=== PATIENT | female | born 1980 | race Caucasian/White ===

== ENCOUNTER 2016-10-02 13:56 | Emergency (ER) | payer OTHER ==
[~2016-10-02] VITALS: Ht 175.3 cm; Wt 68.0 kg
[2016-10-02] MEDS ORDERED: MULTLIQ7 PO (14:05)
[2016-10-02 14:45] LABS: BASO % 0.6 % (0.0-1.0); EOS # 0.2 K/mm3 (0.0-0.50); EOS % 2.7 % (0.0-3.0); LARGE UNSTAINED CELL # 0.2 K/mm3 (0.0-0.4); LARGE UNSTAINED CELL % 2.6 % (0.0-4.0); LYMPH % 31.8 % (24.0-44.0); MEAN CORPUSCULAR HEMOGLOBIN 32.3 pg (27.0-33.0); MEAN CORPUSCULAR HGB CONC 33.8 g/dl (32.0-36.5); MEAN CORPUSCULAR VOLUME 95.4 fl (80.0-96.0); MONO # 0.3 K/mm3 (0.0-0.8); MONO % 5.4 % (0.0-5.0); NEUTROPHILS # 3.5 K/mm3 (1.8-7.7); NEUTROPHILS % 56.9 % (36.0-66.0); PLATELET COUNT, AUTOMATED 184 k/mm3 (150-450); RED CELL DISTRIBUTION WIDTH 12.1 % (11.5-14.5); WHITE BLOOD COUNT 6.2 K/mm3 (4.0-10.0)
[2016-10-02 15:29] VITALS: BP 124/68
--- NOTE | 2016-10-02 16:04 | REP ---
FIRST TRIMESTER ULTRASOUND: Real-time sonographic evaluation of the pelvis performed utilized transabdominal and endovaginal technique. Uterus measures 8.8 x 6.4 x 7.0 cm. Small cystic area in the endometrial canal measures 5 mm in average diameter which could represent a gestational sac 5 weeks 2 days gestational age. No yolk sac or pole is seen. Adjacent complex fluid is seen in the endometrial canal measuring 2.8 x 1.3 x 3.6 cm. Right ovary measures 3.5 x 2.6 x 3.0 cm with a complex cystic structure of 1.7 x 0.9 x 1.3 cm. Left ovary measures 3.4 x 2.0 x 2.5 cm. There is no ovarian torsion or blood flow seen in each ovary with duplex Doppler evaluation. No other adnexal mass is seen. There is mild free fluid. IMPRESSION: Small cystic area in the endometrial canal with adjacent complex fluid/hemorrhage. Small cystic structure right ovary. Mild free fluid. Findings may represent very early intrauterine with large subchorionic hemorrhage. Ectopic is not completely excluded. Suggest correlation with serial quantitaive beta hCG values. Signed by Gil Tapia MD 10/02/2016 04:59 P
== END 2016-10-02 16:02 | disposition home or self-care (01) ==
LOC: M ED 14:54
DX: O20.0 Threatened abortion (principal); Z3A.00 Weeks of gestation of pregnancy not specified

== ENCOUNTER → 2016-10-08 | Outpatient (CLI) | payer OTHER ==
[~2016-10-08] MED LIST: MULTLIQ7 PO
--- NOTE | 2016-10-08 14:53 | REP ---
Clinical: Dating and viability. Comparison: 10/02/2016. Technique: Transabdominal and transvaginal first trimester obstetrical ultrasound with color Doppler evaluation. Findings: Anteverted uterus measures 10.3 x 6.2 x 8.4 cm and includes a gestational sac with yolk sac, but no identifiable pole. Mean sac diameter measuring 15.7 mm corresponds to 6 weeks 3 days gestational age. A moderate subchorionic hemorrhage is again identified measuring 28 x 20 x 36 mm similar to prior examination. Ovaries are stable again demonstrating 12 mm hemorrhagic cyst in the right ovary as well as small amount of free fluid in the pelvis. Impression: Mean sac diameter currently measuring at 6 weeks 3 days gestational age without pole. Differential diagnosis includes spontaneous and early , and less likely ectopic cannot be excluded. Correlation with serial HCG levels and repeat ultrasound as necessary. Signed by Mitchell Camacho MD 10/08/2016 02:44 P
== END ==
LOC: M RAD 13:49
PROVIDERS: ATTEND Obstetrics & Gynecology
DX: Z36 Encounter for antenatal screening of mother (principal); Z3A.01 Less than 8 weeks gestation of pregnancy

== ENCOUNTER 2017-05-15 04:04 | Inpatient (IN) | payer OTHER ==
[~2017-05-15] VITALS: Ht 175.3 cm; Wt 99.0 kg
[2017-05-15] VITALS (11 sets, daily range): BP systolic 114–143; BP diastolic 56–70
[2017-05-15] MEDS ORDERED: OXYTOCIN 30 UNITS IN 0.9% NaCl 500ML IV BAG (J2590) As Ordered ONE (04:07)
[2017-05-15] MEDS ORDERED: OXYTOCIN DRIP 30 UNITS in APPROPRIATE DILUENT 1 EA IV SCH (04:52)
[2017-05-15] MEDS ORDERED: LIDOCAINE 1% MDV INJ 50 ML VIAL INFIL ONE (05:00)
[2017-05-15] MEDS ORDERED: DIBUCAINE 1% OINTMENT 30GM TOP PRN (05:00)
[2017-05-15] MEDS ORDERED: ONDANSETRON 4MG/2ML VIAL (J2405) IV PRN (05:00)
[2017-05-15] MEDS ORDERED: MEASLES,MUMPS,RUBELLA VACCINE INJ (MMR-II) (90707) SC SCH (05:00)
[2017-05-15] MEDS ORDERED: miSOPROStol 200 MCG TAB (S0191) PR ONE (05:00)
[2017-05-15] MEDS ORDERED: RHOGAM 300 MCG (1500 IU) INJ (J2790) IM SCH (05:00)
--- NOTE | 2017-05-15 05:05 | DNPDOC ---
[facility] Delivery Note Delivery Note DATE OF DELIVERY: 257 at home, [id number] PREDELIVERY DIAGNOSIS: 36 4/7 weeks' gestation and labor. POST DELIVERY DIAGNOSIS: Delivered. 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 Amezcua ANESTHESIA: none ESTIMATED BLOOD LOSS: 300 mL. FINDINGS: 7 pound 3 ounce male , Score 8/9 per EMS DELIVERY SUMMARY: Paged a little after 0300, told by that baby had just delivered at home in the bathroom. EMS had just arrived. I got a quick history , estimated time from awaking with gush of fluid to delivery 30 min. Told EMS to clamp the cord only and get her to [facility]. On arrival, baby doing well and on the warmer. placenta still in place. Slight traction and fundal massage , intact with some old blood following, no trailing membranes. Fundus firm at U -1, pit going wide open. 2nd degr perineal lac repaired in standard fashion with 3-0 vicryl after 1% lidocaine bath. Good cosmesis/hemostasis. ELIS,GABBY Knowles MD May 15, 2017 05:05
--- NOTE | 2017-05-15 05:18 | HPEPDOC ---
Obstetrical History & Physical General Date of Admission May 15, 2017 at 04:04 History of Present Illness Paged a little after 0300, told by that baby had just delivered at home in the bathroom. EMS had just arrived. I got a quick history, estimated time from awaking with gush of fluid to delivery 30 min. Told EMS to clamp the cord only and get her to [facility]. Problem list: prior CD with first baby due to known vasa previa Second baby a with 3rd degr lac AMA HSV IGM pos-TORCH done due to presence of echogenic bowel, noted again at SEP MFM scan, gone at 10NOV MFM scan. They rec'd routine care after that visit. Was seen yesterday and her plan was to start the Valtrex tomorrow. No genital outbreaks ever, denies today any burning/pain/lesions. 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) Family History Significant Family History: No pertinent family hx Social History Marital Status: Family situation: Spouse/partner home Psychosocial History: No pertinent psych hx * Smoker: non-smoker Alcohol: Denies Drugs: denies Abuse Violence Screening Have you been hit/kicked/slapp: No Have you been sexually assault: No Imunizations Tdap status: current Influenza Status: declined Allergies Coded Allergies: Amoxicillin (Verified Allergy, Unknown, 10/02/16) Medications Scheduled (Multivitamin) 1 Liq Liq, 1 LIQ PO DAILY Physical Examination Physical Examination GENERAL: Alert and oriented times three. BREAST: . ABDOMEN: Gravid and non-tender to touch. EXTREMITIES: No edema. See delivery note Laboratory Data 24H LABS Laboratory Tests 2 05/15/17 04:45: Serology Scanned Report Hepatitis B Testing Pertinent Laboratoy Data Blood Type: A+ RBC Antibody Screen: Negative HIV: Negative Hepatitis B: Negative Hepatitis C: Unknown Rapid Plasma Reagin: Nonreactive Rubella: Immune Varicella: Immune Chlamydia/Gonorrhea: Negative Group B Streptococcus: Unknown (done yesterday, pending) Quad Screen Test: Negative Cystic Fibrosis: Negative Glucose Tolerance Test: 86 Anatomy Ultrasound Ultrasound Date: Jan 20, 2017 Placenta Location: Posterior Normal Anatomy: No (nl yanci except echogenic bowel) Placenta Previa: No Other Ultrasounds multiple at [facility] in [place], latest [id number] WNL. Assessment/Plan Assessment Successfil at home, rapid labor/delivery (30 min after waking). Admitted , see del note for what happened after admission. Plan SESSIONS,GABBY Knowles MD May 15, 2017 05:18
[2017-05-15] MEDS: IBUPROFEN 800 MG TAB PO PRN ×2 (05:22→15:56)
[2017-05-15 06:40] LABS: MEAN CORPUSCULAR HEMOGLOBIN 30.6 pg (27.0-33.0); MEAN CORPUSCULAR HGB CONC 32.2 g/dl (32.0-36.5); MEAN CORPUSCULAR VOLUME 94.9 fl (80.0-96.0); PLATELET COUNT, AUTOMATED 178 10^3/uL (150-450); RED CELL DISTRIBUTION WIDTH 12.5 % (11.5-14.5); WHITE BLOOD COUNT 15.9 10^3/uL (4.0-10.0)
[2017-05-15] MEDS: PRENATAL VITAMINS CHEWABLE TABLET PO SCH (09:25)
[2017-05-15] MEDS: DOCUSATE SODIUM 100 MG CAP PO SCH ×2 (09:25→20:42)
[2017-05-15] MEDS: ACETAMINOPHEN TAB 650MG DOSE (2X325MG) PO PRN ×2 (11:22→20:42)
[2017-05-16 06:00] VITALS: BP 110/57
--- NOTE | 2017-05-16 06:03 | IPNPDOC ---
Progress Note Date of Service May 16, 2017 Progress Note PPD 1 Gina is a 36yo [id number] s/p uncomplicated unanticipated at home at 36w4d after precipitous labor- and mom did well, mom had a 2mll repaired after presenting to [facility]. She feels well today, desires discharge if able (GBS was unknown). Tolerating regular diet, voiding spontaneously and ambulating without problem. Lochia minimal. Pain well controlled. Breast feeding well. Denies f/c/n/v/CP/SOB. Vitals wnl, afebrile General: WDWN, resting comfortably in bed breast feeding baby Abdomen: soft, ND, NT, fundus firm at u-2cm Extremities: trace edema of BLE, no pain with palpation of calves Assessment: Multiparous, doing well PPD 1 after uncomplicated precipitous home . Vitals wnl, exam benign. Hemodynamically stable with no e/o infection. Plan: -Discharge today if GBS test returns negative, otherwise anticipate discharge tomorrow -routine PP care -regular diet -tylenol/motrin prn pain -has home meds: motrin/tylenol/colace/lanolin -unsure of desired contraception, discussed LARC and vasectomy- will discuss with and decide by PP visit in [address] Shahnaz Contreras MD [place] ANDRE VS, I&O, 24H, Fishbone Vital Signs/I&O Vital Signs Date Time Temp Pulse Resp B/P (MAP) Pulse Ox O2 Delivery O2 Flow Rate FiO2 05/15/17 17:48 99.2 102 20 126/64 (84) 97 I&O- Last 24 Hours up to 6 AM 05/16/17 06:00 Intake Total 1350 ml Output Total 1200 ml Balance 150 ml Laboratory Data 24H LABS Laboratory Tests 2 05/15/17 06:10: Urine Amphetamines Screen NEGATIVE, Urine Benzodiazepines Screen NEGATIVE, Urine Opiates Screen NEGATIVE, Urine Methadone Screen NEGATIVE, Urine Barbiturates Screen NEGATIVE, Urine Phencyclidine Screen NEGATIVE, Urine Cocaine Metabolite Screen NEGATIVE, Urine Cannabinoids Screen NEGATIVE 05/15/17 06:21: Nucleated Red Blood Cells % (auto) 0.0 CBC/BMP Laboratory Tests 05/15/17 06:21 Red Blood Count 3.14 L, Mean Corpuscular Volume 94.9, Mean Corpuscular Hemoglobin 30.6, Mean Corpuscular Hemoglobin Concent 32.2, Red Cell Distribution Width 12.5 Shahnaz Contreras MD May 16, 2017 06:03
[2017-05-16] MEDS ORDERED: INFLUENZA QUADRIVALENT PF VACCINE 0.5ML SYRINGE (90686) IM ONE (09:00)
[2017-05-16] MEDS: DOCUSATE SODIUM 100 MG CAP PO SCH ×2 (09:49→20:09)
[2017-05-16] MEDS: PRENATAL VITAMINS CHEWABLE TABLET PO SCH (09:49)
[2017-05-16] MEDS: IBUPROFEN 800 MG TAB PO PRN ×2 (09:50→18:00)
[2017-05-16 18:02] VITALS: BP 118/59
[2017-05-17 06:00] VITALS: BP 122/58
--- NOTE | 2017-05-17 06:52 | IPN ---
DATE: 05/15/2017 This patient requested circumcision of her male . After discussing the risks, benefits of circumcision, the medical and nonmedical indications, penile block and aftercare, expressed understanding of the risks and benefits of penile block and all questions were answered. We await the clearance by the crank hand.
[2017-05-17] MEDS ORDERED: INFLUENZA QUADRIVALENT PF VACCINE 0.5ML SYRINGE (90686) IM ONE (09:00)
[2017-05-17] MEDS: PRENATAL VITAMINS CHEWABLE TABLET PO SCH (10:04)
[2017-05-17] MEDS: DOCUSATE SODIUM 100 MG CAP PO SCH (10:04)
[2017-05-17] MEDS ORDERED: ACET50TA PO (11:27)
[2017-05-17] MEDS ORDERED: COLA100C5 PO (11:27)
[2017-05-17] MEDS ORDERED: IBUP-1114 PO (11:27)
== END 2017-05-17 12:30 | disposition home or self-care (01) | DRG 769 ==
LOC: M LDI 04:04 → M OBS 10:13
PROVIDERS: ADMIT Obstetrics & Gynecology; ATTEND Obstetrics & Gynecology
PROC: 0KQM0ZZ Repair Perineum Muscle, Open Approach (ICD-10-PCS; principal; 2017-05-15)
DX: O70.1 Second degree perineal laceration during delivery (principal); Z3A.36 36 weeks gestation of pregnancy

== ENCOUNTER 2018-08-02 05:04 | Emergency (ER) | payer OTHER ==
[~2018-08-02] VITALS: Ht 175.3 cm; Wt 70.5 kg
[~2018-08-02 05:04] MED LIST changes: +COLA100C5 PO; +IBUP-1114 PO; +MAPA500T2 PO
[2018-08-02] MEDS ORDERED: PRENTAB45 PO (05:15)
[2018-08-02 08:10] LABS: BASO % 0.4 % (0.0-1.0); EOS # 0.1 10^3/uL (0.0-0.50); EOS % 1.8 % (0.0-3.0); HEMATOCRIT 37.8 % (36.0-47.0); HEMOGLOBIN 12.4 g/dl (12.0-15.5); LYMPH # 1.7 10^3/uL (1.5-4.5); LYMPH % 21.6 % (24.0-44.0); MEAN CORPUSCULAR HGB CONC 32.8 g/dl (32.0-36.5); MEAN CORPUSCULAR VOLUME 94.5 fl (80.0-96.0); MONO # 0.7 10^3/uL (0.0-0.8); MONO % 9.1 % (0.0-5.0); NEUTROPHILS # 5.3 10^3/uL (1.8-7.7); NEUTROPHILS % 66.7 % (36.0-66.0); PLATELET COUNT, AUTOMATED 187 10^3/uL (150-450); WHITE BLOOD COUNT 7.9 10^3/uL (4.0-10.0)
--- NOTE | 2018-08-02 09:15 | REP ---
First trimester obstetric ultrasound, emergency room staff request: The study is performed with transabdominal, endovaginal and Doppler ultrasound assessment. There is an intrauterine gestational sac with a pole. The pole crown-rump length is 4.0 mm corresponding to gestational age of 6 weeks 0 days. There is no cardiac activity. The gestational sac has a irregular shape and is located in the lower uterine segment. Right ovary: Right ovary measures 2.9 x 2.0 by 1.6 cm and is normal size. There is no dominant mass or cyst. There is vascular flow with the Doppler resistive index of the parenchymal arteries measuring 0.66. Left ovary: There is an involuting cyst measuring 1.1 x 1.0 x 1.1 cm. Left ovary is normal size measuring 3.2 x 2.1 x 2.7 cm. There is a left ovarian vascular flow with the Doppler resistive index of the parenchymal arteries measuring 0.60. There is no free fluid in the pelvis. Impression: Irregularly-shaped intrauterine gestational sac located in the lower uterine segment containing a pole. There is no cardiac activity. Findings are compatible with spontaneous in progress versus missed . There is a left ovarian involuting follicle. Electronically Signed by Gil Morrow MD 08/02/2018 09:05 A
[2018-08-02 10:06] VITALS: BP 127/95
[2018-08-02 10:48] LABS: BLOOD UREA NITROGEN 11 MG/DL (7-18); CALCIUM LEVEL 8.7 MG/DL (8.5-10.1); CARBON DIOXIDE LEVEL 25 MEQ/L (21-32); CHLORIDE LEVEL 106 MEQ/L (98-107); CREATININE FOR GFR 0.76 MG/DL (0.55-1.30); GLOMERULAR FILTRATION RATE > 60.0 (>60); GLUCOSE, FASTING 89 MG/DL (70-100); HCG, SERUM QUANTITATIVE 2892 MIU/ML; POTASSIUM SERUM 3.9 MEQ/L (3.5-5.1); SODIUM LEVEL 139 MEQ/L (136-145)
[2018-08-02 11:08] LABS: CHLAMYDIA DNA AMPLIFICATION NEGATIVE (NEGATIVE); GC DNA AMPLIFICATION NEGATIVE (NEGATIVE)
== END 2018-08-02 10:06 | disposition home or self-care (01) ==
LOC: M ED 05:04
DX: O03.4 Incomplete spontaneous abortion without complication (principal); Z88.0 Allergy status to penicillin

== ENCOUNTER 2019-07-24 00:34 | Inpatient (IN) | payer OTHER ==
[~2019-07-24] VITALS: Ht 175.3 cm; Wt 87.2 kg
[2019-07-24] VITALS (9 sets, daily range): BP systolic 109–141; BP diastolic 55–68
[~2019-07-24 00:34] MED LIST changes: +PRENTAB45 PO
[2019-07-24] MEDS ORDERED: VALT500T PO (01:12)
[2019-07-24] MEDS ORDERED: OXYTOCIN 30 UNITS IN 0.9% NaCl 500ML IV BAG (J2590) As Ordered ONE ×2 (02:25→03:13)
[2019-07-24 02:32] LABS: HEMATOCRIT 32.4 % (36.0-47.0); HEMOGLOBIN 10.6 g/dl (12.0-15.5); MEAN CORPUSCULAR HEMOGLOBIN 30.5 pg (27.0-33.0); MEAN CORPUSCULAR HGB CONC 32.7 g/dl (32.0-36.5); MEAN CORPUSCULAR VOLUME 93.1 fl (80.0-96.0); PLATELET COUNT, AUTOMATED 152 10^3/uL (150-450); RED BLOOD COUNT 3.48 10^6/uL (4.00-5.40); WHITE BLOOD COUNT 9.1 10^3/uL (4.0-10.0)
[2019-07-24] MEDS ORDERED: VANCOMYCIN HCL 1,000 MG, VIAL MATE ADAPTER 1 EACH in D5W 250 ML IV SCH (03:00)
[2019-07-24] MEDS ORDERED: RHOGAM 300 MCG (1500 IU) INJ (J2790) IM SCH (03:30)
[2019-07-24] MEDS ORDERED: DIBUCAINE 1% OINTMENT 30GM TOP PRN (03:30)
[2019-07-24] MEDS ORDERED: IBUPROFEN 600 MG TAB PO PRN (03:30)
[2019-07-24] MEDS ORDERED: METHYLERGONOVINE MALEATE 0.2 MG/ML VIAL (J2210) IM ONE (03:30)
[2019-07-24] MEDS ORDERED: ACETAMINOPHEN TAB 650MG DOSE (2X325MG) PO PRN (03:30)
[2019-07-24] MEDS ORDERED: ACETAMINOPHEN 500 MG TAB PO PRN (03:30)
[2019-07-24] MEDS ORDERED: DOCUSATE SODIUM 100 MG CAP PO PRN (03:30)
[2019-07-24] MEDS ORDERED: MEASLES,MUMPS,RUBELLA VACCINE INJ (MMR-II) (90707) SC SCH (03:30)
[2019-07-24] MEDS ORDERED: OXYTOCIN DRIP 30 UNITS in IV 1 EA IV SCH ×4 (03:30)
[2019-07-24] MEDS ORDERED: LIDOCAINE 1% MDV 20ML VIAL INFIL ONE (03:30)
--- NOTE | 2019-07-24 03:42 | DNPDOC ---
[facility] Delivery Note Delivery Note DATE OF DELIVERY: 07/24/2019 PREDELIVERY DIAGNOSIS: 39w5d gestation and labor. POST DELIVERY DIAGNOSIS: Delivered. PROCEDURE: Successful TOLAC DIRECTOR OF NURSING: Dr. Shahnaz Contreras MD ANESTHESIA: 1% lidocaine for repair ESTIMATED BLOOD LOSS: 350 mL. FINDINGS: 8 pound 0 ounce (3640g) female , Score 9/9 DELIVERY SUMMARY: Gina is a 39yo [id number] s/p uncomplicated at 0234 on 07/24/2019 after presenting in active labor at 39w5d. She presented to triage 4cm dilated and precipitously progressed to C/C/0 within an hour. Since she was initially o bserved as a labor check and progressed quickly, she did not receive GBS prophylaxis. AROM was performed when the bag was visualized at the introitus, meconium stained fluid was present. Infant's head delivered OA, restituted LOUIS. Left anterior shoulder delivered followed by posterior shoulder and corpus. was vigorous with spontaneous cry, placed on maternal abdomen and cord was clamped x2 and cut by FOB after approximately 2 minutes. Terminal meconium was present. Infant's nose and mouth were suctioned with bulb suction. Apgars 9/9. With traction on the umbilical cord and uterine massage, placenta delivered spontaneously and intact with 3 vessel centrally inserted cord. Uterine massage was performed, pitocin was given per protocol, and fundus was then firm at u- 2cm. Inspection of perineum and vagina revealed 2mll repaired in routine fashion with 3-0 vicryl after anesthetizing with 1% lidocaine with excellent reapproximation and total hemostasis noted. 0.2mg IM methergine given for some extra bleeding with resultant cessation of bleeding and fundus firm again. All counts correct x2. Mom and were doing well when I left the room. MD Diane Arriaza Katrina D MD Jul 24, 2019 03:42
--- NOTE | 2019-07-24 04:04 | HPEPDOC ---
Obstetrical History & Physical General Date of Admission Jul 24, 2019 at 02:09 History of Present Illness Precipitous delivery occurred before the writing of H&P Gina is a 39yo [id number] s/p uncomplicated after presenting to triage with regular ctx that started at 11pm. She was 4cm on presentation and then rapidly progressed to C/C/0. No LOF prior to arrival, she had no vaginal bleeding and felt good movement. Chief Complaint: Contractions, term Information Provided By: Patient Care Care: Good Care Dating Final EDC: Jul 26, 2019 Final EDC by: LMP, 1st trimester (US) Antepartum Course Diagnos(e)s AMA (age 39), history of section for vasa previa in 2011 followed by in 2015 and 2016. Delivery in 2017 was precipitous home delivery. Elevated 1hr glucola with normal 3hr GTT (1 value elevated). No hx of HSV lesion, but positive serology so treated with Valtrex starting at 36wk. GBS pos. 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 (positive HSV serology but never has had a lesion) Past Medical History Medical History Benign Surgical History: section (x1), Dilatation and Curettage (and Hysteroscopy), Tonsilectomy, [place] teeth, Other (removal of pituitary tumor 2009) Family History Significant Family History: No pertinent family hx Social History Marital Status: Family situation: Spouse/partner home Psychosocial History: No pertinent psych hx * Smoker: non-smoker Alcohol: Denies Drugs: denies Imunizations Tdap status: current Influenza Status: current Allergies Coded Allergies: amoxicillin (Verified Allergy, Unknown, 07/24/19) Medications Scheduled Vit No.129/Iron/Folic ( One Daily Tablet) 1 Tab Tab, 1 TAB PO DAILY Valacyclovir HCl (Valtrex) 500 Mg Tablet, 500 MG PO BID Physical Examination Physical Examination GENERAL: Alert and oriented times three. ABDOMEN: Gravid and non-tender to touch. FETUS: Is vertex (VTX) by sterile vaginal examination (SVE) EXTREMITIES: No edema Vital Signs/I&O Vital Signs Date Time Temp Pulse Resp B/P (MAP) Pulse Ox O2 Delivery O2 Flow Rate FiO2 07/24/19 00:48 98.6 76 18 141/68 (92) Laboratory Data 24H LABS Laboratory Tests 2 07/24/19 02:11: Serology Scanned Report Hepatitis B Testing 07/24/19 02:25: Nucleated Red Blood Cells % (auto) 0.0 CBC/BMP Laboratory Tests 07/24/19 02:25 Pertinent Laboratoy Data Blood Type: A+ RBC Antibody Screen: Negative HIV: Negative Hepatitis B: Negative Hepatitis C: Unknown Rapid Plasma Reagin: Nonreactive Rubella: Immune Varicella: Immune Chlamydia/Gonorrhea: Negative Group B Streptococcus: Positive Quad Screen Test: Negative Glucose Tolerance Test: 172 (84/171/168/91) Anatomy Ultrasound Ultrasound Date: Mar 24, 2019 Placenta Location: Posterior Normal Anatomy: Yes Placenta Previa: No Steroid Therapy Steroid Therapy: No Vaginal Examination Dilation: 4 cm Effacement: 50% Station: -2 Cervical Consistency: Soft Cervical Position: Anterior Presentation: Cephalic presentation Assessment Heart Rate (FHR): 130 Variability: Moderate Accelerations: Positive Decelerations: Other (2 subtle late decels initially that resolved with repositioning then early decels when patient was C/C/0) Tocometer Contractions: Yes Frequency: regular, every 2-5 min. Duration: greater than 60 seconds Strength: palpated as strong Assessment/Plan Assessment Gina is a 39yo [id number] s/p uncomplicated after presenting to triage with regular ctx that started at 11pm. She was 4cm on presentation and then rapidly progressed to C/C/0 and delivered with a few sets of pushes. PMhx/ course significant for: AMA (age 39), history of section for vasa previa in 2011 followed by in 2016 and 2017. Delivery in 2017 was precipitous home delivery. Elevated 1hr glucola with normal 3hr GTT (1 value elevated). No hx of HSV lesion, but positive serology so treated with Valtrex starting at 36wk. GBS pos. Plan Patient delivered precipitously as a labor check, progressing from 4cm to C/C/0 in the course of an hour. See delivery note for further details vancomycin was ordered for GBS ppx (PCN allergy), but not received since she delivered so quickly CBC, T&S, RPR Routine care Regular diet Shahnaz Contreras MD Jul 24, 2019 04:04
[2019-07-24] MEDS: IBUPROFEN 800 MG TAB PO PRN ×2 (06:45→15:01)
[2019-07-24] MEDS: PRENATAL VITAMINS CHEWABLE TABLET PO SCH (15:01)
[2019-07-25 06:00] VITALS: BP 112/60
[2019-07-25] MEDS: PRENATAL VITAMINS CHEWABLE TABLET PO SCH (09:04)
[2019-07-25] MEDS: IBUPROFEN 800 MG TAB PO PRN ×2 (09:07→20:27)
[2019-07-25 18:00] VITALS: BP 116/59
[2019-07-26 05:53] VITALS: BP 111/55
--- NOTE | 2019-07-26 06:52 | IPNPDOC ---
Progress Note Date of Service: Jul 26, 2019 Day#: 2 Progress Note SUBJECT: Patient is a 39-year-old 6 now Para 3 status post , doing well day # 2. She has been ambulating, voiding spontaneously without issue and tolerating regular diet. Breast feeding without issue. Reports lochia is lesser than a normal period. Patient is ambulating well. C/o stuffy nose and swollen eyes. No SOB or wheezing. Had some sick contacts with pink eye. Sick since this AM. OBJECTIVE: VITAL SIGNS: Within normal limits, afebrile. Alert and oriented times three. Eyes with swelling but no erythema. Sinuses nontender. Breast without erythema or tenderness. Breath sounds clear to auscultation. Heart rate: Regular rate and rhythm, no murmurs, rubs or gallops. Abdomen: Fundus firm at U-2. Soft, NTTP. Minimal lochia. Lower extremeties nontender and no edema ASSESSMENT: Patient is a 39-year-old 6 now Para 3 status post , doing well day # 2. Likely having allergic reaction to dryness from A/C. D/w patient that if doesn't resolve within few hours of being home then to be seen at for pink eye eval. Vitals within normal limits, afebrile, hemodynamically stable with no evidence of infection. PLAN: 1. Discharge to home today. 2. Tylenol and Motrin for pain. 3. Encourage breast feeding and ambulation. 4. Routine PP visit in 6 weeks in clinic. 5. Discussed return precautions at length. VS, I&O, 24H, Fishbone Vital Signs/I&O Vital Signs Date Time Temp Pulse Resp B/P (MAP) Pulse Ox O2 Delivery O2 Flow Rate FiO2 07/26/19 05:53 98.0 78 18 111/55 (73) 98 Room Air Keiko Morrow MD Jul 26, 2019 06:52
[2019-07-26] MEDS ORDERED: DIBU10OI TOP (06:54)
[2019-07-26] MEDS ORDERED: DOCU100C16 PO (06:54)
[2019-07-26] MEDS ORDERED: IBUP80TA PO (06:54)
[2019-07-26] MEDS: PRENATAL VITAMINS CHEWABLE TABLET PO SCH (08:20)
[2019-07-26] MEDS: IBUPROFEN 800 MG TAB PO PRN (08:20)
--- NOTE | 2019-07-26 12:54 | IPN ---
DATE: 07/25/2019 39-year-old 6 now para 3 admitted with contractions had a vaginal after section () female 8 pounds 0 ounces, 3640 grams, scores of 9 and 9 at 1 and 5 minutes, respectively. She had a small tear oversewn in the usual fashion with local 1% Xylocaine. She was GBS positive and not treated in time. She is an advanced maternal age and trial of labor after section (TOLAC). Admitting hemoglobin 10.6, hematocrit 32.4 and platelets are 152. Her vital signs today: Her blood pressure is 112/60, respirations 17, pulse 84, temperature 98.7. She is not going home today because the baby was not treated in time and pediatrics will not allow the baby to go before 24 hours. Otherwise, the patient is breast-feeding, doing well, mobilizing, passing gas, is voiding well, anxious to go home tomorrow. Medications were dispensed at [facility]. The patient will have a 6-week checkup at [facility].
== END 2019-07-26 13:00 | disposition home or self-care (01) | DRG 807 ==
LOC: M LDO 00:34 → M LDI 02:09 → M OBS 08:43
PROVIDERS: ADMIT Obstetrics & Gynecology; ATTEND Obstetrics & Gynecology
PROC: 10E0XZZ Delivery of Products of Conception, External Approach (ICD-10-PCS; principal; 2019-07-24)
PROC: 0KQM0ZZ Repair Perineum Muscle, Open Approach (ICD-10-PCS; 2019-07-24)
PROC: 10907ZC Drainage of Amniotic Fluid, Therapeutic from Products of Conception, Via Natural or Artificial Opening (ICD-10-PCS; 2019-07-24)
DX: O62.3 Precipitate labor (principal); Z37.0 Single live birth; O34.211 Maternal care for low transverse scar from previous cesarean delivery; O99.824 Streptococcus B carrier state complicating childbirth; Z3A.39 39 weeks gestation of pregnancy; O70.1 Second degree perineal laceration during delivery